=== PATIENT | female | born 1980 | race American Indian/Alaskan Native ===

== ENCOUNTER 2017-01-01 09:05 | Emergency (ER) | payer MEDICAID ==
[2017-01-01 09:13] VITALS: BP 134/56
[2017-01-01] MEDS ORDERED: TYLENOL #3 PO ONE (11:29)
--- NOTE | 2017-01-01 13:42 | Emergency Department Report ---
Entered by CARLOS ALBERTO SCHULTZ, acting as scribe for APOLLO CORONA PA. HPI - General Chief Complaint: Dental/Oral Time Seen by Provider: 01/01/17 10:47 - HPI HPI: 36 year old female with no significant PMHx presents to ED with c/o left upper tooth ache which radiates to her throat for 2 weeks. Patient rates pain to be 10 /10 in severity and describes pain as achy. Patient reports cold sweats and sore throat, but denies choking, drooling, wheezing, fever, dyspena, coughing, and nasal congestion. Patient is speaking in clear sentences. NKDA. No respiratory symptoms. ED Past Medical Hx - Past Medical History Previous Medical History?: No - Surgical History Past Surgical History?: No - Family History Family history: no significant - Social History Smoking Status: Never Smoker Substance Use Type: None Other Social History: Single - Medications Home Medications: Home Medications Medication Instructions Recorded Confirmed Last Taken Type Acetaminophen/Codeine [Tylenol 1 tab PO Q6H PRN #12 tab 01/01/17 Unknown Rx /Codeine # 3 tab] Penicillin Vk [Veetids TAB] 2 tab PO Q8H #60 tablet 01/01/17 Unknown Rx ED Review of Systems ROS: Stated complaint: MOUTH INFECTION Other details as noted in HPI Comment: All other systems reviewed and negative Constitutional: denies: chills, fever ENT: throat pain, dental pain (radiating to throat.). denies: ear pain, hearing loss, congestion Respiratory: denies: cough, shortness of breath, wheezing Cardiovascular: denies: chest pain, palpitations Gastrointestinal: denies: abdominal pain, nausea, vomiting, diarrhea Musculoskeletal: denies: back pain, joint swelling, arthralgia Skin: denies: rash, lesions Neurological: denies: headache, weakness, numbness, paresthesias Physical Exam - Physical Exam Vital Signs: Vital Signs 01/01/17 09:08 Temperature 98.8 F Pulse Rate 59 L Respiratory 20 Rate Blood Pressure 134/56 O2 Sat by Pulse 100 Oximetry General: This is a 36 yo female well nourished, well developed in no acute distress Physical Exam: Head: Normocephalic, atraumatic Mouth: Moist, no pharyngeal exudate or erythema. Uvula is midline and oral airway is patent. No facial swelling. No peritonsillar abscesses. Gingivitis present,no Trismus ,multiple dental carries and multiple tooth missing noted. No dental tenderness. EYES: BPERRL, BEOMI, no conjunctival injection. sclera normal Nose: Normal mucosa, external appearance, no drainage. Maxillary and frontal sinuses nontender to palpation Lungs: CTAB, Normal work of breathing. EXT: NO CCE +2 pulse Neck: Supple, no C-spine tenderness, no tracheal deviation. Nontender to palpation. no adenopathy Extremities: No CCE. +2 pulses. No neurovascular compromise Cardiovascular: S1-S2, regular rate, regular rhythm. No murmurs. Psych: Normal mood and behavior ED Course Vital Signs 01/01/17 09:08 Temperature 98.8 F Pulse Rate 59 L Respiratory 20 Rate Blood Pressure 134/56 O2 Sat by Pulse 100 Oximetry - Reevaluation(s) Reevaluation #1: 01/01/17 13:32 Patient given tylenol # 3 2 tabs for tooth ache ED Medical Decision Making - Medical Decision Making ED Course: patient complaining lt upper toothache and has no dentist. VSS afeb. Patient found to have poor oral care. She was given Tylenol # 3 2 tabs and instructed to f/u with dentist for further management of poor gums and dental caries. She voiced understanding of Diagnosis and treatment plan. ASSSESSMENT/PLAN 1. Toothache 2. Dental caries 3.Gingivitis PATIENT DISCHARGE HOME TO F/U WITH [facility] dENTAL CLIN[facility] AND TAKE pcn vk AND TYLENOL #3 EDUCATED ON GUM CARE AND FLOSSING Critical care attestation.: If time is entered above; I have spent that time in minutes in the direct care of this critically ill patient, excluding procedure time. ED Disposition Clinical Impression: Gingivitis, Toothache, Dental caries Disposition: DC-01 TO HOME OR SELFCARE Is pt being admited?: No Does the pt Need Aspirin: No Condition: Stable Instructions: Dental Caries (ED), Toothache (ED), Gingivitis (ED) Additional Instructions: Follow up with Dentist as instructed Please do not drive or operate heavy machnery while taking TYl # 3 as this can cause drowsiness Take Penicillin as instructed Prescriptions: Acetaminophen/Codeine [Tylenol /Codeine # 3 tab] 1 tab PO Q6H PRN #12 tab PRN Reason: Toothache Penicillin Vk [Veetids TAB] 2 tab PO Q8H #60 tablet Referrals: [facility] [Outside] - 3-5 Days [facility] [Outside] - 2-3 Days Forms: Work/School Release Form(ED) This documentation as recorded by the ANTOINE contreras PEARL,accurately reflects the service I personally performed and the decisions made by me,APOLLO CORONA PA.
== END 2017-01-01 14:01 | disposition home or self-care (01) ==
LOC: ED 09:05
DX: K02.9 Dental caries, unspecified (principal); K08.89 Other specified disorders of teeth and supporting structures; K05.10 Chronic gingivitis, plaque induced
CPT/HCPCS: 99282

== ENCOUNTER 2017-04-09 13:56 | Emergency (ER) | payer MEDICAID ==
--- NOTE | 2017-04-09 14:56 | Emergency Department Report ---
Chief Complaint: Nausea/Vomiting/Diarrhea Stated Complaint: NAUSEA/VOMITING Time Seen by Provider: 04/09/17 14:55 - HPI History of Present Illness: Patient here reported that she has nausea with vomiting and she vomited twice today but denies any diarrhea. She said she has some abdominal pain from time to time but none now. Denies any urinary burning frequency or urgency. She is also complaining it definitely infected broken tooth to her left lower. She denies any medical problems. Patient reported a registration sign in sheet that she is dehydrated and bleed in. But she denies B bleed into me. - ROS Review of Systems: All systems are negative unless stated in HPI above - Exam Vital Signs: Vital Signs 04/09/17 14:03 Temperature 100.8 F H Pulse Rate 92 H Respiratory 18 Rate Blood Pressure 120/74 O2 Sat by Pulse 100 Oximetry Physical Exam: Gen.: This is a 36-year-old female well-nourished well-developed in no acute distress. Abdomen: Tender to palpate in all quadrants, no guarding or rebound tenderness. Normal bowel sounds in all quadrants Mouth: Moist, no pharyngeal exudate or erythema and no peritonsillar abscess. Patient with poor oral care, dental caries. MSE screening note: Focused history and physical exam performed. Due to findings the following was ordered: ED Medical Decision Making - Medical Decision Making MDM: Patient screened by provider in triage area. Appropriate protocol initiated and patient to be seen in main ED by ED Disposition for MSE Condition: Stable
[2017-04-09 15:36] LABS: Alanine Aminotransferase 9 units/L (7-56); Albumin 3.8 g/dL (3.9-5); Albumin/Globulin Ratio 1.1 %; Alkaline Phosphatase 53 units/L (35-129); Anion Gap 17 mmol/L; BUN/Creatinine Ratio 9; Blood Urea Nitrogen 7 mg/dL (7-17); Calcium 9.1 mg/dL (8.4-10.2); Carbon Dioxide 24 mmol/L (22-30); Chloride 98.8 mmol/L (98-107); Glucose 112 mg/dL (65-100); Lipase 34 units/L (13-60); Potassium 3.4 mmol/L (3.6-5.0); Sodium 136 mmol/L (137-145); Total Protein 7.4 g/dL (6.3-8.2)
[2017-04-09 15:52] LABS: Basophils % (Auto) 0.2 % (0.0-1.8); Eosinophils % (Auto) 0.2 % (0.0-4.3); Hematocrit 35.9 % (30.3-42.9); Hemoglobin 11.6 gm/dl (10.1-14.3); Mean Corpuscular HGB Conc 32 % (30-34); Mean Corpuscular Hemoglobin 28 pg (28-32); Mean Corpuscular Volume 87 fl (79-97); Platelet Count 294 K/mm3 (140-440); Red Blood Count 4.13 M/mm3 (3.65-5.03); Red Cell Distribution Width 14.6 % (13.2-15.2); White Blood Count 9.7 K/mm3 (4.5-11.0)
[2017-04-09 17:07] LABS: Bacteria,Urine 1+ /HPF (Negative); Bilirubin,Urine NEG (Negative); Blood,Urine SM (Negative); Ketones,Urine NEG (Negative); Leukocyte Esterase,Urine MOD (Negative); Mucus,Urine FEW /HPF; Nitrite,Urine NEG (Negative); Urobilinogen,Urine < 2.0 mg/dL (<2.0)
[2017-04-09] MEDS ORDERED: TYLENOL PO ONE (19:16)
[2017-04-09] MEDS ORDERED: ZOFRAN ODT PO ONE (19:17)
[2017-04-09] MEDS ORDERED: TYLENOL ONE (19:20)
[2017-04-09] MEDS ORDERED: NACL 0.9% 1000 ML 1,000 ML IV ONE (21:46)
[2017-04-09] MEDS ORDERED: TORADOL IV ONE (21:48)
--- NOTE | 2017-04-09 21:48 | Emergency Department Report ---
HPI - General Chief Complaint: Nausea/Vomiting/Diarrhea Time Seen by Provider: 04/09/17 14:55 - HPI HPI: This is a 36-year-old after [place] female presents to the emergency department from home with a complaint of a 2 day history of nausea, vomiting, body aches and subjective fever. She tried some Tylenol PM for her symptoms without much relief. She denies any past medical history. She does not have a primary care physician. No known active bleeding or alleviating factors. She denies any cough, dysuria, vaginal bleeding, vaginal discharge, chest pain or shortness of breath. ED Past Medical Hx - Past Medical History Previous Medical History?: No - Surgical History Past Surgical History?: No - Social History Smoking Status: Current Every Day Smoker Substance Use Type: Alcohol - Medications Home Medications: Home Medications Medication Instructions Recorded Confirmed Last Taken Type Acetaminophen/Codeine [Tylenol 1 tab PO Q6H PRN #12 tab 01/01/17 Unknown Rx /Codeine # 3 tab] Penicillin Vk [Veetids TAB] 2 tab PO Q8H #60 tablet 01/01/17 Unknown Rx Nitrofurantoin Monohyd/M-Cryst 100 mg PO BID #14 capsule 04/09/17 Unknown Rx [Macrobid 100 mg Capsule] Ondansetron [Zofran Odt] 4 mg PO Q8H PRN #10 tab.rapdis 04/09/17 Unknown Rx ED Review of Systems ROS: Stated complaint: NAUSEA/VOMITING Other details as noted in HPI Constitutional: chills, fever Eyes: denies: eye pain, eye discharge, vision change ENT: denies: ear pain, throat pain Respiratory: denies: cough, shortness of breath, wheezing Cardiovascular: denies: chest pain, palpitations Gastrointestinal: nausea, vomiting Genitourinary: denies: urgency, dysuria, discharge Musculoskeletal: myalgia. denies: joint swelling Skin: denies: rash, lesions Neurological: denies: headache, weakness, paresthesias Physical Exam - Physical Exam Vital Signs: Vital Signs 04/09/17 04/09/17 04/09/17 14:03 19:14 19:22 Temperature 100.8 F H 101.5 F H Pulse Rate 92 H 80 Respiratory 18 128 H 18 Rate Blood Pressure 120/74 128/58 Blood Pressure [Left] O2 Sat by Pulse 100 100 Oximetry 04/09/17 04/09/17 21:30 21:31 Temperature 101.5 F H Pulse Rate 86 Respiratory 22 20 Rate Blood Pressure Blood Pressure 137/57 [Left] O2 Sat by Pulse 100 100 Oximetry Physical Exam: GENERAL: The patient is well-developed well-nourished. HENT: Normocephalic. Atraumatic. Patient has moist mucous membranes. EYES: Extraocular motions are intact. Pupils equal reactive to light bilaterally. NECK: Supple. Trachea is midline. CHEST/LUNGS: Clear to auscultation. There is no respiratory distress noted. HEART/CARDIOVASCULAR: Regular. There is no tachycardia. There is no gallop rub or murmur. ABDOMEN: Abdomen is soft, nontender. Patient has normal bowel sounds. There is no abdominal distention. SKIN: Skin is warm and dry. NEURO: The patient is awake, alert, and oriented. The patient is cooperative. The patient has no focal neurologic deficits. The patient has normal speech and gait. MUSCULOSKELETAL: There is no tenderness or deformity. There is no limitation range of motion. There is no evidence of acute injury. ED Course Vital Signs 04/09/17 04/09/17 04/09/17 14:03 19:14 19:22 Temperature 100.8 F H 101.5 F H Pulse Rate 92 H 80 Respiratory 18 128 H 18 Rate Blood Pressure 120/74 128/58 Blood Pressure [Left] O2 Sat by Pulse 100 100 Oximetry 04/09/17 04/09/17 21:30 21:31 Temperature 101.5 F H Pulse Rate 86 Respiratory 22 20 Rate Blood Pressure Blood Pressure 137/57 [Left] O2 Sat by Pulse 100 100 Oximetry ED Medical Decision Making - Lab Data Result diagrams: 04/09/17 14:12 04/09/17 14:12 - Medical Decision Making Patient presents with a few days of nausea, vomiting, fever and body aches. Labs are mostly unremarkable except for a urinary tract infection. It does not show any significant signs of dehydration. She was given a dose of Macrobid here. She was given some Zofran through triage and there has been no further nausea or vomiting while in the emergency department. She was negative for influenza. Vital signs stable. She was given Tylenol and Toradol and her either has started to decrease. She will follow up with primary care doctor and will return to the ER with any worsening of her symptoms or any acute distress. - Differential Diagnosis influenza, UTI, food poisoning, viral syndrome Critical Care Time: No Critical care attestation.: If time is entered above; I have spent that time in minutes in the direct care of this critically ill patient, excluding procedure time. ED Disposition Clinical Impression: Body aches Fever Qualifiers: Fever type: unspecified Qualified Code(s): R50.9 - Fever, unspecified UTI (urinary tract infection) Qualifiers: Urinary tract infection type: acute cystitis Hematuria presence: without hematuria Qualified Code(s): N30.00 - Acute cystitis without hematuria Nausea & vomiting Qualifiers: Vomiting type: unspecified Vomiting Intractability: non-intractable Qualified Code(s): R11.2 - Nausea with vomiting, unspecified Disposition: TO HOME OR SELFCARE Is pt being admited?: No Condition: Stable Instructions: Urinary Tract Infection in Women (ED), Fever in Adults (ED), Acute Nausea and Vomiting (ED) Additional Instructions: Please follow up with a primary care physician in the next few days. Return to the emergency Department with any worsening of your symptoms or any acute distress. Take the antibiotics as prescribed. You can take Tylenol every 4 hours and ibuprofen every 6 hours, using weight-based dosing, as needed for fever or discomfort. Prescriptions: Nitrofurantoin Monohyd/M-Cryst [Macrobid 100 mg Capsule] 100 mg PO BID #14 capsule Ondansetron [Zofran Odt] 4 mg PO Q8H PRN #10 tab.rapdis PRN Reason: Nausea Referrals: PRIMARY MD MEG [Primary Care Provider] - 3-5 Days MARNIE VIDALES MD [Staff Physician] - 3-5 Days [facility] [Outside] - 3-5 Days Forms: Work/School Release Form(ED) Time of Disposition: 23:49
[2017-04-09] MEDS ORDERED: cefTRIAXone 1 GM in NACL 0.9% 20 ML IV ONE (22:00)
[2017-04-09] MEDS ORDERED: TORADOL ONE (22:30)
[2017-04-09] MEDS ORDERED: TORADOL IM ONE (22:40)
[2017-04-09] MEDS ORDERED: MACROBID PO ONE (22:41)
[2017-04-09 23:26] VITALS: BP 124/63
== END 2017-04-10 00:01 | disposition home or self-care (01) ==
LOC: ED 13:56
DX: N30.00 Acute cystitis without hematuria (principal); M79.1 Myalgia; R50.9 Fever, unspecified; R11.2 Nausea with vomiting, unspecified; F17.200 Nicotine dependence, unspecified, uncomplicated
CPT/HCPCS: 36415; 80053; 81001; 81025; 83690; 85025; 87400; 96372; 99283; J1885; J0696; J7030; Q0162

== ENCOUNTER 2021-01-30 15:47 | Emergency (ER) | payer MEDICAID ==
[2021-01-30] MEDS ORDERED: ACETAMINOPHEN 325 MG TAB PO ONE (16:52)
[2021-01-30] MEDS ORDERED: IBUPROFEN 800 MG TAB PO ONE (19:20)
[2021-01-30 19:23] VITALS: BP 129/49
[2021-01-30 19:23] LABS: Bacteria,Urine 1+ /HPF (Negative); Bilirubin,Urine NEG (Negative); Blood,Urine MOD (Negative); Color,Urine Yellow (Yellow); Mucus,Urine 1+ /HPF
[2021-01-30 19:26] LABS: HCG Qualitative,Urine Negative (Negative)
[2021-01-30] MEDS ORDERED: LIDOCAINE-MPF (1%) 10 MG/1 ML VIAL 5 ML INFILTRATI ONE (19:43)
--- NOTE | 2021-01-30 20:06 | Emergency Department Report ---
ED Fever HPI - General Chief Complaint: Fever Stated Complaint: WEAK/HEADACHE/FEVER Time Seen by Provider: 01/30/21 16:46 - History of Present Illness Initial Comments: Patient is a 40-year-old female presents emergency room complaints of a fever that began 3 days ago. She has associated chills, generalized body aches, nausea. She states that she is also had urinary frequency for the last 3 days. she states she received her second COVID 19 vaccine a few days ago. she denies any sick contact or recent travel. she denies any cough, v/d, cp, sob, abd pain, cp, cough. no pmhx. no allergies to meds. LNMP 2 weeks ago. she states she has not taken any medication ED Review of Systems ROS: Stated complaint: WEAK/HEADACHE/FEVER Other details as noted in HPI Comment: All other systems reviewed and negative ED Past Medical Hx - Past Medical History Previous Medical History?: No - Surgical History Past Surgical History?: No - Social History Smoking Status: Current Every Day Smoker Substance Use Type: None - Medications Home Medications: Home Medications Medication Instructions Recorded Confirmed Last Taken Type Acetaminophen/Codeine [Tylenol 1 tab PO Q6H PRN #12 tab 01/01/17 Unknown Rx /Codeine # 3 tab] Penicillin Vk [Veetids TAB] 2 tab PO Q8H #60 tablet 01/01/17 Unknown Rx Nitrofurantoin Monohyd/M-Cryst 100 mg PO BID #14 capsule 04/09/17 Unknown Rx [Macrobid 100 mg Capsule] Ondansetron [Zofran Odt] 4 mg PO Q8H PRN #10 tab.rapdis 04/09/17 Unknown Rx Acetaminophen/Codeine [Tylenol 1 tab PO Q6H PRN #10 tab 01/30/21 Unknown Rx /Codeine # 3 tab] Ondansetron [Zofran Odt] 4 mg PO Q8HR PRN #10 tab.rapdis 01/30/21 Unknown Rx cephALEXin [Keflex] 500 mg PO BID 10 Days #20 cap 01/30/21 Unknown Rx ED Physical Exam - General Limitations: No Limitations General appearance: alert, in no apparent distress - Head Head exam: Present: atraumatic, normocephalic - Eye Eye exam: Present: normal appearance - ENT ENT exam: Present: mucous membranes moist - Respiratory Respiratory exam: Present: normal lung sounds bilaterally. Absent: respiratory distress, wheezes, rales, rhonchi, stridor, chest wall tenderness, accessory muscle use, decreased breath sounds, prolonged expiratory - Cardiovascular Cardiovascular Exam: Present: regular rate, normal rhythm, normal heart sounds. Absent: systolic murmur, diastolic murmur, rubs, gallop - GI/Abdominal GI/Abdominal exam: Present: soft, normal bowel sounds. Absent: distended, tenderness, guarding, rebound, rigid - Back Exam Back exam: Absent: CVA tenderness (R), CVA tenderness (L) - Neurological Exam Neurological exam: Present: alert, oriented X3 - Psychiatric Psychiatric exam: Present: normal affect, normal mood - Skin Skin exam: Present: warm, dry, intact ED Course Vital Signs 01/30/21 01/30/21 16:11 19:21 Temperature 101.8 F H 101.3 F H Pulse Rate 89 86 Respiratory 20 18 Rate Blood Pressure 151/76 Blood Pressure 129/49 [Left] O2 Sat by Pulse 99 98 Oximetry ED Medical Decision Making - Lab Data Lab Results 01/30/21 Range/Units 18:43 Urine Color Yellow (Yellow) Urine Turbidity Slightly-cloudy (Clear) Urine pH 5.0 (5.0-7.0) Ur Specific [place] 1.017 (1.003-1.030) Urine Protein 30 mg/dl (Negative) mg/dL Urine Glucose (UA) Neg (Negative) mg/dL Urine Ketones 20 (Negative) mg/dL Urine Blood Mod (Negative) Urine Nitrite Pos (Negative) Urine Bilirubin Neg (Negative) Urine Urobilinogen 4.0 (<2.0) mg/dL Ur Leukocyte Esterase Lg (Negative) Urine WBC (Auto) 132.0 H (0.0-6.0) /HPF Urine RBC (Auto) 4.0 (0.0-6.0) /HPF U Epithel Cells (Auto) 2.0 (0-13.0) /HPF Urine Bacteria (Auto) 1+ (Negative) /HPF Urine Mucus 1+ /HPF Urine HCG, Qual Negative (Negative) Vital Signs 01/30/21 01/30/21 16:11 19:21 Temperature 101.8 F H 101.3 F H Pulse Rate 89 86 Respiratory 20 18 Rate Blood Pressure 151/76 Blood Pressure 129/49 [Left] O2 Sat by Pulse 99 98 Oximetry - Medical Decision Making Patient is a 40-year-old female presents emergency room complaints of a fever that began 3 days ago. She has associated chills, generalized body aches, nausea. She states that she is also had urinary frequency for the last 3 days. she states she received her second COVID 19 vaccine a few days ago. she denies any sick contact or recent travel. she denies any cough, v/d, cp, sob, abd pain, cp, cough. no pmhx. no allergies to meds. LNMP 2 weeks ago. she states she has not taken any medication. Vitals with fever, otherwise stable. No abnormality on physical examination as documented in chart. Patient given Tylenol and nurse repeated vitals and advised will continue to have fever, ordered ibuprofen. Patient states that she just urinated prior to coming to the emergency room, I discussed with patient the importance of needing a urine sample, she states that she is going to drink some water. Patient was finally able to give urine sample and UA shows evidence of significant UTI, urine is negative. Ordered for patient to have 1 g of ceftriaxone IM. I went to reevaluate patient for possible discharge and patient was no longer in exam room. I attempted to call phone number listed her patient twice with no answer. I attempted to call patient's next of kin which appears to be her grandmother and the person who answered the phone number states that it was the wrong number and that was not that person. Patient has eloped from the emergency department prior to receiving a complete spinal medical examination and without treatment. Critical care attestation.: If time is entered above; I have spent that time in minutes in the direct care of this critically ill patient, excluding procedure time. ED Disposition Clinical Impression: UTI (urinary tract infection) Qualifiers: Urinary tract infection type: site unspecified Hematuria presence: without hematuria Qualified Code(s): N39.0 - Urinary tract infection, site not specified Disposition: 07 LEFT AWOL/ELOPED Is pt being admited?: No Does the pt Need Aspirin: No Condition: Undetermined Instructions: Urinary Tract Infection, Adult Additional Instructions: Prescriptions: cephALEXin [Keflex] 500 mg PO BID 10 Days #20 cap Acetaminophen/Codeine [Tylenol /Codeine # 3 tab] 1 tab PO Q6H PRN #10 tab PRN Reason: Pain , Severe (7-10) Ondansetron [Zofran Odt] 4 mg PO Q8HR PRN #10 tab.rapdis PRN Reason: nausea/vomiting Referrals: PRIMARY CARE, [Primary Care Provider] - 2-3 Days CHUCK HERNANDEZ MD [Staff Physician] - 2-3 Days [facility] [Provider Group] - 2-3 Days Time of Disposition: 20:07 Print Language: YI
== END 2021-01-31 05:38 | disposition left against medical advice (07) ==
LOC: ED 15:47
DX: N39.0 Urinary tract infection, site not specified (principal)
CPT/HCPCS: 81001; 81025; 99283; J0696

== ENCOUNTER 2021-04-12 21:23 | Emergency (ER) | payer MEDICAID ==
[2021-04-12] MEDS ORDERED: ONDANSETRON 4 MG/2 ML INJ IV ONE (21:47)
--- NOTE | 2021-04-12 21:51 | Emergency Department Report ---
History of Present Illness - General Chief Complaint: Overdose Stated Complaint: OVERDOSE Time Seen by Provider: 04/12/21 21:35 Source: EMS Mode of arrival: Stretcher Limitations: No Limitations - History of Present Illness Initial Comments: 40-year-old female here after accidental overdose of reportedly marijuana edible. Patient was unresponsive with EMS and remains unresponsive here although she does open her eyes to verbal stimuli. Patient unable to give additional history. Patient does have some vomiting on her shirt. There is no report of any head trauma or fall. MD Complaint: accidental overdose - Related Data Previous Rx's Medication Instructions Recorded Last Taken Type Acetaminophen/Codeine [Tylenol 1 tab PO Q6H PRN #12 tab 01/01/17 Unknown Rx /Codeine # 3 tab] Penicillin Vk [Veetids TAB] 2 tab PO Q8H #60 tablet 01/01/17 Unknown Rx Nitrofurantoin Monohyd/M-Cryst 100 mg PO BID #14 capsule 04/09/17 Unknown Rx [Macrobid 100 mg Capsule] Ondansetron [Zofran Odt] 4 mg PO Q8H PRN #10 tab.rapdis 04/09/17 Unknown Rx Acetaminophen/Codeine [Tylenol 1 tab PO Q6H PRN #10 tab 01/30/21 Unknown Rx /Codeine # 3 tab] Ondansetron [Zofran Odt] 4 mg PO Q8HR PRN #10 tab.rapdis 01/30/21 Unknown Rx cephALEXin [Keflex] 500 mg PO BID 10 Days #20 cap 01/30/21 Unknown Rx Allergies Allergy/AdvReac Type Severity Reaction Status Date / Time No Known Allergies Allergy Verified 01/01/17 09:08 ED Review of Systems ROS: Stated complaint: OVERDOSE Other details as noted in HPI Comment: Unobtainable due to pts medical conditions ED Past Medical Hx - Social History Smoking Status: Unknown if ever smoked Substance Use Type: Marijuana, Other - Medications Home Medications: Home Medications Medication Instructions Recorded Confirmed Last Taken Type Acetaminophen/Codeine [Tylenol 1 tab PO Q6H PRN #12 tab 01/01/17 Unknown Rx /Codeine # 3 tab] Penicillin Vk [Veetids TAB] 2 tab PO Q8H #60 tablet 01/01/17 Unknown Rx Nitrofurantoin Monohyd/M-Cryst 100 mg PO BID #14 capsule 04/09/17 Unknown Rx [Macrobid 100 mg Capsule] Ondansetron [Zofran Odt] 4 mg PO Q8H PRN #10 tab.rapdis 04/09/17 Unknown Rx Acetaminophen/Codeine [Tylenol 1 tab PO Q6H PRN #10 tab 01/30/21 Unknown Rx /Codeine # 3 tab] Ondansetron [Zofran Odt] 4 mg PO Q8HR PRN #10 tab.rapdis 01/30/21 Unknown Rx cephALEXin [Keflex] 500 mg PO BID 10 Days #20 cap 01/30/21 Unknown Rx ED Physical Exam - General Limitations: No Limitations General appearance: obtunded - Head Head exam: Present: atraumatic, normocephalic - Eye Eye exam: Present: normal appearance Pupils: Present: normal accommodation - ENT ENT exam: Present: other (drooling noted) - Neck Neck exam: Present: normal inspection - Respiratory Respiratory exam: Present: normal lung sounds bilaterally. Absent: respiratory distress - Cardiovascular Cardiovascular Exam: Present: regular rate, normal rhythm. Absent: systolic murmur, diastolic murmur, rubs, gallop - GI/Abdominal GI/Abdominal exam: Present: soft, normal bowel sounds - Rectal Rectal exam: Present: deferred - Extremities Exam Extremities exam: Present: normal inspection. Absent: tenderness - Back Exam Back exam: Present: normal inspection - Neurological Exam Neurological exam: Present: altered - Expanded Neurological Exam Expanded Neurological exam: Present: protecting the airway - Psychiatric Psychiatric exam: Present: other (unable to assess) - Skin Skin exam: Present: warm, dry, intact ED Course Vital Signs 04/12/21 04/12/21 04/12/21 21:34 21:44 21:46 Temperature Pulse Rate Respiratory Rate Blood Pressure 120/69 O2 Sat by Pulse 97 98 99 Oximetry 04/12/21 04/12/21 04/12/21 22:00 22:02 22:16 Temperature Pulse Rate Respiratory Rate Blood Pressure 121/61 121/61 114/49 O2 Sat by Pulse 98 100 97 Oximetry 04/12/21 04/12/21 04/12/21 22:30 22:46 22:47 Temperature Pulse Rate Respiratory 18 Rate Blood Pressure 117/63 126/57 O2 Sat by Pulse 97 99 99 Oximetry 04/12/21 04/12/21 04/12/21 23:00 23:16 23:40 Temperature Pulse Rate Respiratory Rate Blood Pressure 122/48 122/48 O2 Sat by Pulse 96 96 99 Oximetry 04/12/21 04/13/21 04/13/21 23:46 00:00 00:16 Temperature Pulse Rate Respiratory Rate Blood Pressure 114/61 114/61 O2 Sat by Pulse 97 97 99 Oximetry 04/13/21 04/13/21 04/13/21 00:30 00:46 01:00 Temperature Pulse Rate Respiratory Rate Blood Pressure 115/69 115/69 128/68 O2 Sat by Pulse 98 99 100 Oximetry 04/13/21 04/13/21 04/13/21 01:16 01:30 01:46 Temperature 98.4 F Pulse Rate 82 Respiratory Rate Blood Pressure 128/68 129/67 129/67 O2 Sat by Pulse 98 99 99 Oximetry 04/13/21 04/13/21 04/13/21 02:00 02:16 02:30 Temperature Pulse Rate Respiratory Rate Blood Pressure 134/69 134/69 161/97 O2 Sat by Pulse 95 100 100 Oximetry 04/13/21 04/13/21 04/13/21 02:46 03:00 03:16 Temperature 98.3 F Pulse Rate 84 Respiratory 18 Rate Blood Pressure 161/97 146/82 146/82 O2 Sat by Pulse 100 99 100 Oximetry - Reevaluation(s) Reevaluation #1: 04/12/21 22:03 Attempted to contact [facility] listed in demographics. Person who answered informed me I had the wrong number. Reevaluation #2: 04/13/21 05:36 Patient is awake and alert. She is desiring discharge. We repeated patient's BMP which shows mildly elevated potassium at 5.2 however patient has a normal renal function. Her gap has improved and her CO2 is now close to normal. Given this we will plan to discharge patient with close follow-up patient should have a repeat set of labs done at her primary care doctor's office this week. ED Medical Decision Making - Lab Data Result diagrams: 04/12/21 21:53 04/13/21 04:09 - EKG Data -: EKG Interpreted by Me EKG shows normal: sinus rhythm Rate: normal - EKG Data Interpretation: nonspecific ST-T wave andry 04/12/21 22:23 EKG performed at 2207, rate 79 - Radiology Data Radiology results: report reviewed - Medical Decision Making This is a 40-year-old female here after accidental ingestion or overdose of marijuana edibles. Plan for full evaluation including labs, chest x-ray, EKG. We will also obtain UDS, ethanol level. Will discuss with family to ensure patient did not have any trauma although per EMS there was no trauma. If patient does not improve within 3 hours we will plan to scan her brain. Critical care attestation.: If time is entered above; I have spent that time in minutes in the direct care of this critically ill patient, excluding procedure time. ED Disposition Clinical Impression: Use of cannabinoid edibles, Altered mental status Disposition: HOME / SELF CARE / HOMELESS Is pt being admited?: No Does the pt Need Aspirin: No Condition: Stable Instructions: Cannabis Use Disorder, Electrolyte Disorders, Pediatric Additional Instructions: You were unresponsive secondary to using marijuana edible Gummies. You should likely avoid these in the future. You also had some electrolyte abnormalities and dehydration. You were given IV fluids and your electrolytes were replaced. You should have a repeat set of labs done this week by your primary care doctor, you should ask him for a chemistry or BMP. Referrals: PRIMARY CARE, [Primary Care Provider] - 3-5 Days SANDY BRUNSON MD [Staff Physician] - 3-5 Days Time of Disposition: 05:40
[2021-04-12 22:09] LABS: Basophils % (Auto) 0.2 % (0.0-1.8); Eosinophils % (Auto) 0.3 % (0.0-4.3); Hematocrit 30.8 % (30.3-42.9); Hemoglobin 9.8 gm/dl (10.1-14.3); Lymphocytes # (Auto) 2.1 K/mm3 (1.2-5.4); Lymphocytes % (Auto) 21.5 % (13.4-35.0); Mean Corpuscular HGB Conc 32 % (30-34); Mean Corpuscular Volume 82 fl (79-97); Monocytes # (Auto) 0.4 K/mm3 (0.0-0.8); Monocytes % (Auto) 3.8 % (0.0-7.3); Platelet Count 426 K/mm3 (140-440); Red Blood Count 3.76 M/mm3 (3.65-5.03); Red Cell Distribution Width 15.6 % (13.2-15.2)
[2021-04-12 22:27] LABS: Alanine Aminotransferase 7 units/L (7-56); Albumin 3.2 g/dL (3.9-5); Blood Urea Nitrogen 8 mg/dL (7-17); Calcium 7.8 mg/dL (8.4-10.2); Hemolysis Index 5
[2021-04-12 22:29] LABS: BUN/Creatinine Ratio 11
[2021-04-12] MEDS ORDERED: SODIUM CHLORIDE 0.9% 1000 ML 1,000 ML ONE (23:14)
[2021-04-12] MEDS ORDERED: SODIUM CHLORIDE 0.9% 1000 ML 1,000 ML IV ONE ×2 (23:36)
--- NOTE | 2021-04-12 23:52 | Cat Scan Report ---
CT HEAD WITHOUT CONTRAST INDICATION / CLINICAL INFORMATION: Altered Mental Status. TECHNIQUE: All CT scans at this location are performed using CT dose reduction for ALARA by means of automated exposure control. COMPARISON: None available. FINDINGS: BRAIN PARENCHYMA: No acute intracranial hemorrhage. No evidence of recent infarct. No mass effect or midline shift. VENTRICULAR SYSTEM/EXTRA-AXIAL SPACES: Ventricles are normal for age. No extra-axial fluid collection . ORBITS: Normal as visualized. SKELETAL SYSTEM/SOFT TISSUES: Normal bones and soft tissues. PARANASAL SINUSES/MASTOID AIR CELLS: No significant abnormality. ADDITIONAL FINDINGS: None. IMPRESSION: 1. No acute intracranial abnormality. Signer Name: Jairo Whiting MD Signed: 04/12/2021 11:48 PM Workstation Name: [id number]
[2021-04-13] MEDS: POTASSIUM CHLORIDE 10 MEQ 10 MEQ/100 ML BAG IV SCH ×4 (00:01→04:38)
[2021-04-13] MEDS ORDERED: MAGNESIUM SULFATE 1 GM in SODIUM CHLORIDE 0.9% 50 ML IV ONE (00:22)
[2021-04-13] MEDS ORDERED: POTASSIUM CHLORIDE ER 20 MEQ TAB PO ONE (03:24)
[2021-04-13 03:26] VITALS: BP 146/82
[2021-04-13 03:39] LABS: Bacteria,Urine 4+ /HPF (Negative); Bilirubin,Urine NEG (Negative); Blood,Urine NEG (Negative); Color,Urine Straw (Yellow); Mucus,Urine FEW /HPF; Protein,Urine <15 mg/dL mg/dL (Negative); Urobilinogen,Urine < 2.0 mg/dL (<2.0)
[2021-04-13 03:44] LABS: Amphetamine Screen,Urine PRESUMPTIVE NEGATIVE; Benzodiazepines Screen,Urine PRESUMPTIVE NEGATIVE; Cannabinoid Screen,Urine PRESUMPTIVE POSITIVE; Cocaine Screen,Urine PRESUMPTIVE NEGATIVE; Methadone Screen,Urine PRESUMPTIVE NEGATIVE; Opiate Screen,Urine PRESUMPTIVE NEGATIVE
[2021-04-13 03:49] LABS: HCG Qualitative,Urine Negative (Negative)
[2021-04-13] MEDS ORDERED: SODIUM CHLORIDE 0.9% 1000 ML 1,000 ML ONE (04:27)
--- NOTE | 2021-04-13 04:29 | XRay Report ---
XR chest 1V ap INDICATION / CLINICAL INFORMATION: od; eval for aspiration. COMPARISON: None available. FINDINGS: Limited due to body habitus. SUPPORT DEVICES: None. HEART /PULMONARY VASCULATURE: No significant abnormality. LUNGS / PLEURA: There are low lung volumes. No significant pulmonary or pleural abnormalities identif ied. No pneumothorax. ADDITIONAL FINDINGS: No significant additional findings. IMPRESSION: 1. No acute findings. Signer Name: Jairo Whiting MD Signed: 04/13/2021 4:25 AM Workstation Name: [id number]
[2021-04-13 04:42] LABS: Blood Urea Nitrogen 8 mg/dL (7-17); Calcium 8.9 mg/dL (8.4-10.2); Hemolysis Index 55
[2021-04-13 04:54] LABS: BUN/Creatinine Ratio 11
--- NOTE | 2021-04-13 14:39 | Electrocardiograph Report ---
[facility] Test Date: 2021-04-12 Test Time: 22:07:47 Pat Name: TAD JACKSON Department: Room: Gender: F [employer] Sp[employer]: : 1980 Requested By: BAILEY CINTRON Order Number: [id number] Reading MD: Isatu Becerra Measurements Intervals [place] Rate: 79 P: 67 SD: 105 QRS: 39 QRSD: 83 T: -25 QT: 406 QTc: 464 Interpretive Statements Sinus rhythm Borderline T abnormalities, diffuse leads No previous ECG available for comparison Electronically Signed On 04-13-2021 14:39:15 EST by Isatu Becerra
== END 2021-04-13 06:53 | disposition home or self-care (01) ==
LOC: ED 21:23
DX: F12.90 Cannabis use, unspecified, uncomplicated (principal); Z79.899 Other long term (current) drug therapy; R41.82 Altered mental status, unspecified
CPT/HCPCS: 36415; 70450; 71045; 80048; 80053; 80307; 81001; 81025; 83735; 84484; 85025; 93005; 96365; 96366; 96375; 99285; J2405; J3475; J3480; J7030; 80320; 96361; Q0162; G0480